=== PATIENT | male | born 1975 | race Caucasian/White ===

== ENCOUNTER 2023-06-20 13:58 | Outpatient (CLI) | payer OTHER, SELFPAY | END 2023-06-20 13:59 | disposition home or self-care (01) | PROVIDERS: PCP Emergency Medicine; Visit Provider Emergency Medicine | DX: I10 Essential (primary) hypertension (principal); F10.10 Alcohol abuse, uncomplicated | CPT/HCPCS: 80048; 80076 ==

== ENCOUNTER 2023-09-21 12:41 | Outpatient (CLI) | payer OTHER, SELFPAY | END 2023-09-21 12:42 | disposition home or self-care (01) | PROVIDERS: PCP Emergency Medicine; Visit Provider Physician Assistant Medical | DX: Z13.220 Encounter for screening for lipoid disorders (principal); Z13.29 Encounter for screening for other suspected endocrine disorder; I10 Essential (primary) hypertension | CPT/HCPCS: 80061; 84443 ==

== ENCOUNTER 2024-01-08 09:36 | Outpatient (CLI) | payer BC, SELFPAY ==
--- NOTE | 2024-01-08 11:11 | W.ANESCHARGE ---
Anesthesia Charges Start Date/Time Anesthesia Start Date: 01/08/24 Anesthesia Start Time: 10:30 Stop Date/Time Anesthesia Stop Date: 01/08/24 Anesthesia Stop Time: 11:10
--- NOTE | 2024-01-08 11:36 | W.ANESCHARGE ---
Anesthesia Charges Start Date/Time Anesthesia Start Date: 01/08/24 Anesthesia Start Time: 10:30 Stop Date/Time Anesthesia Stop Date: 01/08/24 Anesthesia Stop Time: 11:10
== END 2024-01-08 09:37 | disposition home or self-care (01) ==
LOC: OP CLINIC 09:38
PROVIDERS: PCP Emergency Medicine; Visit Provider Surgery
DX: Z12.11 Encounter for screening for malignant neoplasm of colon (principal); K63.5 Polyp of colon; K62.1 Rectal polyp; R19.5 Other fecal abnormalities
CPT/HCPCS: 00811; 45385; 88305; J2704

== ENCOUNTER 2024-05-15 14:55 | Outpatient (CLI) | payer BC, SELFPAY | END 2024-05-15 14:56 | disposition home or self-care (01) | PROVIDERS: PCP Physician Assistant Medical; Visit Provider Physician Assistant Medical | DX: I10 Essential (primary) hypertension (principal); Z13.220 Encounter for screening for lipoid disorders; Z13.29 Encounter for screening for other suspected endocrine disorder | CPT/HCPCS: 80053; 80061; 84443 ==

== ENCOUNTER 2025-04-17 14:59 | Outpatient (CLI) | payer BC, SELFPAY | END 2025-04-17 15:00 | disposition home or self-care (01) | PROVIDERS: PCP Physician Assistant Medical; Visit Provider Physician Assistant Medical | DX: I10 Essential (primary) hypertension (principal) | CPT/HCPCS: 80053; 80061; 84443 ==